=== PATIENT | female | born 1995 | race Two or more races ===

== ENCOUNTER 2017-10-15 19:26 | Emergency (ER) | payer MEDICAID ==
[~2017-10-15] VITALS: Ht 154.9 cm; Wt 56.7 kg
[2017-10-15 19:39] VITALS: BP 108/70
[2017-10-15 20:17] LABS: Urine Bacteria NONE SEEN /hpf (None Seen); Urine Blood Negative /uL (Negative); Urine Mucus FEW (None Seen); Urine Specific Gravity 1.032 (1.001-1.035); Urine WBC 93 /hpf (0 - 5)
== END 2017-10-15 23:43 | disposition home or self-care (01) ==
LOC: ER 19:26
DX: N39.0 Urinary tract infection, site not specified (principal)
CPT/HCPCS: 81001; 81025